=== PATIENT | female | born 1990 | race African-American/Black ===

== ENCOUNTER 2017-06-17 12:07 | Emergency (ER) | payer OTHER ==
[~2017-06-17] VITALS: Ht 172.7 cm; Wt 68.0 kg
[~2017-06-17 12:07] MED LIST: SILV1CRE59 TOP
[2017-06-17 12:09] VITALS: BP 170/79; PULSE 58; RESP 20; TEMP 98.1; O2SAT 100
[2017-06-17] MEDS ORDERED: SODIUM CHLOR 0.9% 1000 ML INJ 1,000 ML IV SCH (12:33)
[2017-06-17] MEDS ORDERED: MORPHINE SULFATE 4 MG/ML INJ IV PUSH ONE (12:45)
[2017-06-17] MEDS ORDERED: FAMOTIDINE 20 MG/2 ML VIAL IV PUSH ONE (12:45)
[2017-06-17] MEDS ORDERED: SODIUM CHLORIDE 0.9% FLUSH 10 ML FLUSH IV FLUSH PRN (12:45)
[2017-06-17] MEDS ORDERED: ONDANSETRON HCL 4 MG/2 ML VIAL IVP ONE (12:45)
--- NOTE | 2017-06-17 12:46 | PD ---
HPI Chief Complaint: GI Complaint Time Seen by Provider: 12:23 Travel History International Travel<30 days: No Contact w/Intl Traveler<30days: No Traveled to known affect area: No History of Present Illness HPI The patient is a 27-year-old [place] female who presents emergency department for nausea, vomiting, epigastric abdominal pain. The patient has similar symptoms every month with her menstrual cycle. The patient's symptoms started 3 days ago, however, have been persistent and not resolved, as is the normal routine. The patient is currently on her menstrual cycle, denies known . She does complain of nausea, vomiting, and epigastric abdominal pain with poor oral intake secondary to the persistent nausea and vomiting. She denies any diarrhea. She denies any previous abdominal surgeries. She denies any history of pancreatitis, biliary colic, or gallstones. Symptoms are mild to moderate without any alleviating factors. Possibly exacerbated by underlying menstrual cycle. PFSH Past Medical History Medical History: Denies Significant Hx ?: Not LMP: 06/17/17 : 0 Past Surgical History Surgical History: No Previous Surgery Social History Alcohol Use: Yes Tobacco Use: Yes Substance Use: Yes (marijuana) Allergies-Medications (Allergen,Severity, Reaction): Coded Allergies: No Known Allergies (Verified Adverse Reaction, Unknown, 06/17/17) Reported Meds & Prescriptions Reported Meds & Active Scripts Active No Active Prescriptions or Reported Medications Review of Systems Except as stated in HPI: all other systems reviewed are Neg General / Constitutional: No: Fever Cardiovascular: No: Chest Pain or Discomfort Respiratory: No: Shortness of Breath Gastrointestinal: Positive: Nausea, Vomiting, Abdominal Pain, No: Diarrhea Genitourinary: No: Dysuria Musculoskeletal: No: Myalgias Physical Exam Narrative GENERAL: Awake, alert, pleasant 27-year-old female who appears her stated age and is in no acute respiratory distress. SKIN: Focused skin assessment warm/dry. Multiple tattoos noted. HEAD: Atraumatic. Normocephalic. EYES: Pupils equal and round. No scleral icterus. No injection or drainage. ENT: No nasal bleeding or discharge. Mucous membranes pink and moist. NECK: Trachea midline. No JVD. CARDIOVASCULAR: Regular, heart rate in the 60s. No audible murmur. RESPIRATORY: No accessory muscle use. Clear to auscultation. Breath sounds equal bilaterally. GASTROINTESTINAL: Abdomen soft, mild epigastric tenderness. No guarding or rigidity. MUSCULOSKELETAL: No obvious deformities. No clubbing. No cyanosis. No edema. NEUROLOGICAL: Awake and alert. No obvious cranial nerve deficits. Motor grossly within normal limits. Normal speech. PSYCHIATRIC: Appropriate mood and affect; insight and judgment normal. Data Data Last Documented VS Vital Signs Date Time Temp Pulse Resp B/P (MAP) Pulse Ox O2 Delivery O2 Flow Rate FiO2 06/17/17 15:29 58 16 101/56 (71) 98 Room Air 06/17/17 12:09 98.1 Orders Orders Complete Blood Count With Diff (06/17/17 12:33) Comprehensive Metabolic Panel (06/17/17 12:33) Lipase (06/17/17 12:33) Urinalysis - C+S If Indicated (06/17/17 12:33) Iv Access Insert/Monitor (06/17/17 12:33) Ecg Monitoring (06/17/17 12:33) Oximetry (06/17/17 12:33) Morphine Inj (Morphine Inj) (06/17/17 12:45) Ondansetron Inj (Zofran Inj) (06/17/17 12:45) Sodium Chlor 0.9% 1000 Ml Inj (Ns 1000 M (06/17/17 12:33) Sodium Chloride 0.9% Flush (Ns Flush) (06/17/17 12:45) Famotidine Inj (Pepcid Inj) (06/17/17 12:45) Ed Urine Pregnancytest Poc (06/17/17 12:33) Prochlorperazine Inj (Compazine Inj) (06/17/17 14:45) Sodium Chlor 0.9% 1000 Ml Inj (Ns 1000 M (06/17/17 14:45) Labs Laboratory Tests Test 06/17/17 12:50 06/17/17 17:15 White Blood Count 10.4 TH/MM3 Red Blood Count 4.43 MIL/MM3 Hemoglobin 14.5 GM/DL Hematocrit 41.6 % Mean Corpuscular Volume 94.1 FL Mean Corpuscular Hemoglobin 32.7 PG Mean Corpuscular Hemoglobin Concent 34.8 % Red Cell Distribution Width 13.7 % Platelet Count 260 TH/MM3 Mean Platelet Volume 10.3 FL Neutrophils (%) (Auto) 85.5 % Lymphocytes (%) (Auto) 10.9 % Monocytes (%) (Auto) 3.3 % Eosinophils (%) (Auto) 0.0 % Basophils (%) (Auto) 0.3 % Neutrophils # (Auto) 8.9 TH/MM3 Lymphocytes # (Auto) 1.1 TH/MM3 Monocytes # (Auto) 0.3 TH/MM3 Eosinophils # (Auto) 0.0 TH/MM3 Basophils # (Auto) 0.0 TH/MM3 CBC Comment DIFF FINAL Differential Comment Blood Urea Nitrogen 17 MG/DL Creatinine 1.10 MG/DL Random Glucose 218 MG/DL Total Protein 9.3 GM/DL Albumin 4.6 GM/DL Calcium Level 9.7 MG/DL Alkaline Phosphatase 80 U/L Aspartate Amino Transf (AST/SGOT) 17 U/L Alanine Aminotransferase (ALT/SGPT) 26 U/L Total Bilirubin 0.6 MG/DL Sodium Level 135 MEQ/L Potassium Level 3.7 MEQ/L Chloride Level 101 MEQ/L Carbon Dioxide Level 22.4 MEQ/L Anion Gap 12 MEQ/L Estimat Glomerular Filtration Rate 71 ML/MIN Lipase 66 U/L Urine Color YELLOW Urine Turbidity CLEAR Urine pH 6.0 Urine Specific [place] 1.040 Urine Protein 30 mg/dL Urine Glucose (UA) TRACE mg/dL Urine Ketones 40 mg/dL Urine Occult Blood SMALL Urine Nitrite NEG Urine Bilirubin NEG Urine Urobilinogen 2.0 MG/DL Urine Leukocyte Esterase NEG Urine RBC 6 /hpf Urine WBC 2 /hpf Urine Squamous Epithelial Cells <1 /hpf Urine Mucus MANY /lpf Microscopic Urinalysis Comment CULT NOT INDICATED MDM Medical Decision Making Medical Screen Exam Complete: Yes Emergency Medical Condition: Yes Medical Record Reviewed: Yes Interpretation(s) Laboratory Tests Test 06/17/17 12:50 06/17/17 17:15 White Blood Count 10.4 TH/MM3 Red Blood Count 4.43 MIL/MM3 Hemoglobin 14.5 GM/DL Hematocrit 41.6 % Mean Corpuscular Volume 94.1 FL Mean Corpuscular Hemoglobin 32.7 PG Mean Corpuscular Hemoglobin Concent 34.8 % Red Cell Distribution Width 13.7 % Platelet Count 260 TH/MM3 Mean Platelet Volume 10.3 FL Neutrophils (%) (Auto) 85.5 % Lymphocytes (%) (Auto) 10.9 % Monocytes (%) (Auto) 3.3 % Eosinophils (%) (Auto) 0.0 % Basophils (%) (Auto) 0.3 % Neutrophils # (Auto) 8.9 TH/MM3 Lymphocytes # (Auto) 1.1 TH/MM3 Monocytes # (Auto) 0.3 TH/MM3 Eosinophils # (Auto) 0.0 TH/MM3 Basophils # (Auto) 0.0 TH/MM3 CBC Comment DIFF FINAL Differential Comment Blood Urea Nitrogen 17 MG/DL Creatinine 1.10 MG/DL Random Glucose 218 MG/DL Total Protein 9.3 GM/DL Albumin 4.6 GM/DL Calcium Level 9.7 MG/DL Alkaline Phosphatase 80 U/L Aspartate Amino Transf (AST/SGOT) 17 U/L Alanine Aminotransferase (ALT/SGPT) 26 U/L Total Bilirubin 0.6 MG/DL Sodium Level 135 MEQ/L Potassium Level 3.7 MEQ/L Chloride Level 101 MEQ/L Carbon Dioxide Level 22.4 MEQ/L Anion Gap 12 MEQ/L Estimat Glomerular Filtration Rate 71 ML/MIN Lipase 66 U/L Urine Color YELLOW Urine Turbidity CLEAR Urine pH 6.0 Urine Specific [place] 1.040 Urine Protein 30 mg/dL Urine Glucose (UA) TRACE mg/dL Urine Ketones 40 mg/dL Urine Occult Blood SMALL Urine Nitrite NEG Urine Bilirubin NEG Urine Urobilinogen 2.0 MG/DL Urine Leukocyte Esterase NEG Urine RBC 6 /hpf Urine WBC 2 /hpf Urine Squamous Epithelial Cells <1 /hpf Urine Mucus MANY /lpf Microscopic Urinalysis Comment CULT NOT INDICATED Differential Diagnosis Differential diagnoses includes gastritis, gastroenteritis, pancreatitis, peptic ulcer disease, endometriosis, electrolyte abnormality, dehydration. Narrative Course IV was established, labs are drawn and sent, and the patient was placed on cardiac telemetry monitoring and continuous pulse oximetry monitoring. The patient was administered Zofran, morphine, Pepcid, and IV fluids. UA was sent to lab and bedside UA test was obtained. Lipase level was sent to lab. Labs are unremarkable. UA is negative. Urine test is negative. The patient had to be redosed with nausea medicines and IV fluids. She then had improvement of her symptoms. The patient was given a by mouth challenge and tolerated eneida cary and mao crackers without difficulty. She will be provided a work excuse for today and tomorrow. She is advised to have a clear liquid diet and advance as tolerated. Follow-up with her primary physician. Zofran as needed. Return if symptoms worsen or progress. Diagnosis Primary Impression: Gastritis Qualified Codes: K29.00 - Acute gastritis without bleeding Additional Impression: Nausea & vomiting Qualified Codes: R11.2 - Nausea with vomiting, unspecified Patient Instructions: General Instructions Additional Instructions: Medications as directed. Clear liquid diet and advance as tolerated. Work he sees for today and tomorrow. Follow-up with your primary physician. Med/Other Pt SpecificInfo: Prescription(s) given Scripts Ondansetron Odt (Zofran Odt) 4 Mg Tab 4 MG SL Q6HR Y for Nausea/Vomiting, #7 TAB 0 Refills Prov: Madi Bunn MD 06/17/17 Disposition: DISCHARGE HOME Condition: Stable Madi Bunn MD Jun 17, 2017 12:46
[2017-06-17 13:03] LABS: AUTOMATED NEUTROPHIL # 8.9 TH/MM3 (1.8-7.7); BASOPHIL % 0.3 % (0.0-2.0); HEMATOCRIT 41.6 % (35.0-46.0); HEMOGLOBIN 14.5 GM/DL (11.6-15.3); LYMPH % 10.9 % (9.0-44.0); LYMPHOCYTE # 1.1 TH/MM3 (1.0-4.8); MEAN CELL VOLUME 94.1 FL (80.0-100.0); MEAN CORPUSCULAR HEMOGLOBIN 32.7 PG (27.0-34.0); MEAN CORPUSCULAR HGB CONC 34.8 % (32.0-36.0); MEAN PLATELET VOLUME 10.3 FL (7.0-11.0); MONO % 3.3 % (0.0-8.0); MONOCYTE # 0.3 TH/MM3 (0-0.9); NEUT % 85.5 % (16.0-70.0); PLATELET COUNT 260 TH/MM3 (150-450); RED BLOOD COUNT 4.43 MIL/MM3 (4.00-5.30); RED CELL DISTRIBUTION WIDTH 13.7 % (11.6-17.2); WHITE BLOOD COUNT 10.4 TH/MM3 (4.0-11.0)
[2017-06-17 13:18] LABS: ALBUMIN 4.6 GM/DL (3.4-5.0); AST (GOT) 17 U/L (15-37); BICARBONATE 22.4 MEQ/L (21.0-32.0); BLOOD UREA NITROGEN 17 MG/DL (7-18); CALCIUM 9.7 MG/DL (8.5-10.1); CHLORIDE 101 MEQ/L (98-107); GLOMERULAR FILTRATION RATE 71 ML/MIN (>89); GLUCOSE,RANDOM 218 MG/DL (74-106); SODIUM (NA) 135 MEQ/L (136-145)
[2017-06-17 13:19] LABS: ALT (GPT) 26 U/L (10-53)
[2017-06-17 13:22] LABS: ALKALINE PHOSPHATASE 80 U/L (45-117); TOTAL BILIRUBIN ADULT 0.6 MG/DL (0.2-1.0); TOTAL PROTEIN 9.3 GM/DL (6.4-8.2)
[2017-06-17] MEDS ORDERED: SODIUM CHLOR 0.9% 1000 ML INJ 1,000 ML IV ONE (14:45)
[2017-06-17] MEDS ORDERED: PROCHLORPERAZINE INJ 10 MG/2 ML VIAL IV PUSH ONE (14:45)
[2017-06-17 15:29] VITALS: BP 101/56; PULSE 58; RESP 16; O2SAT 98
[2017-06-17 17:38] LABS: BILIRUBIN, URINE NEG (NEG); BLOOD, URINE SMALL (NEG); GLUCOSE,URINE TRACE mg/dL (NEG); KETONE, URINE 40 mg/dL (NEG); MUCUS URINE MANY /lpf (OCC); NITRITE,URINE NEG (NEG); SQUAMOUS EPITHELIAL CELL URINE <1 /hpf (0-5); URINE COLOR YELLOW (YELLW/STRAW); URINE LEUKOCYTE ESTERASE NEG (NEG)
[2017-06-17] MEDS ORDERED: ZOFR4TAB3 SL (18:02)
[2017-06-17 18:06] VITALS: BP 122/62
== END 2017-06-17 18:18 | disposition home or self-care (01) ==
LOC: NEPE 12:07
DX: K29.70 Gastritis, unspecified, without bleeding (principal); F12.90 Cannabis use, unspecified, uncomplicated; Z72.0 Tobacco use
CPT/HCPCS: 80053; 81001; 83690; 84703; 85025; 96361; 96374; 96375; 99284; J0780; J2270; J2405; J7030